=== PATIENT | female | born 1990 | race Caucasian/White ===

== ENCOUNTER 2019-08-29 10:50 | Emergency (ER) | payer OTHER, SELFPAY ==
[~2019-08-29] VITALS: Ht 154.9 cm; Wt 72.6 kg
[~2019-08-29 10:50] MED LIST: ACET-8386 PO; CONTRACEPTIVE PO
[2019-08-29 11:18] VITALS: BP 117/73
--- NOTE | 2019-08-29 11:31 | NUR ---
29 YO FEMALE CO SORE THROAT X3D. PT STATES THAT SHE HAS NO TROUBLE SWALLOWING AND NO DROOLOING WAS OBSERVED. PT STATES THAT THERE IS JUST A CONSTANT PAIN AND THAT SWALLOWING OR TALKING DOES NOT MAKE IT WORSE. PT TAKING CHAMOILLE TEA TO HELP WITH THE PAIN. PT HAS NO MED HX AND TAKING NO RX.
--- NOTE | 2019-08-29 12:20 | NUR ---
DR. OLIVEROS AT BEDSIDE
--- NOTE | 2019-08-29 13:00 | NUR ---
COVID SWAB COLLECTED
--- NOTE | 2019-08-29 13:09 | NUR ---
Reji gill in [facility] - 08/29/19 at 1309 by LOIDA COVID SWAB COLLECTED
--- NOTE | 2019-08-29 13:10 | NUR ---
Patient discharged with v/s stable. Written and verbal after care instructions given and explained. Patient alert, oriented and verbalized understanding of instructions. Ambulatory with steady gait. All questions addressed prior to discharge. ID band removed. Patient advised to follow up with PMD. Rx of CEPACOL given. Patient educated on indication of medication including possible reaction and side effects. Opportunity to ask questions provided and answered.
[2019-08-29 13:11] VITALS: BP 117/73
== END 2019-08-29 13:10 | disposition home or self-care (01) ==
LOC: EEVIPCON 10:50 → MED 10:50
DX: J02.8 Acute pharyngitis due to other specified organisms (principal); B97.89 Other viral agents as the cause of diseases classified elsewhere; Z20.828 Contact with and (suspected) exposure to other viral communicable diseases; Z98.890 Other specified postprocedural states; Z79.899 Other long term (current) drug therapy; Z88.5 Allergy status to narcotic agent
CPT/HCPCS: 36415; 99283

== ENCOUNTER 2020-03-10 09:29 | Emergency (ER) | payer OTHER, SELFPAY ==
[~2020-03-10] VITALS: Ht 157.5 cm; Wt 72.6 kg
[2020-03-10 09:40] VITALS: BP 128/79
--- NOTE | 2020-03-10 09:40 | NUR ---
Patient to OF tent.
--- NOTE | 2020-03-10 09:45 | NUR ---
30 y/o female from home c/o cough x 2 months, diagnosed with bronchitis 2 months ago. States she was in car with coworker who tested + for covid 2 days ago. Per patient she wants to get tested to make sure "she is ok". RR even and unlabored, denies pain. VSS medhx: denies
--- NOTE | 2020-03-10 09:47 | NUR ---
Dr Mcintyre in tent examining patient
[2020-03-10 09:59] VITALS: BP 128/79
--- NOTE | 2020-03-10 10:00 | NUR ---
Patient discharged with v/s stable. Written and verbal after care instructions given and explained. Patient verbalized understanding. Ambulatory with steady gait. All questions addressed prior to discharge. Advised to follow up with PMD.
== END 2020-03-10 10:00 | disposition home or self-care (01) ==
LOC: MED 09:29
DX: R05 Cough (principal); Z20.828 Contact with and (suspected) exposure to other viral communicable diseases
CPT/HCPCS: 99283; U0003